=== PATIENT | male | born 1980 | race Caucasian/White ===

== ENCOUNTER 2024-04-04 00:07 | Emergency (ER) | payer OTHER, SELFPAY ==
[2024-04-04 00:09] VITALS: BP 158/84
--- NOTE | 2024-04-04 03:04 | ED.GENMED ---
History of Present Illness
General
Chief Complaint: Skin Problem
Source: patient
Exam Limitations: none
Time Seen by Provider: 04/04/24 01:52
History of Present Illness
History of Present Illness:
Patient states that he cut his penis while trying to shave with clippers. States he saw his primary care doctor who gave him a prescription for antibiotics but only to use if there was appears infection. Became concerned because he started flap
looked dark and then he checked it out on [facility] and was concerned. He is mostly here just for checkup. No fevers. Does have mupirocin at home
Past History
Past History
ED Past Medical History: None
ED Past Surgical History: None
Social History
Tobacco: Non-smoker
Alcohol: Occasional
Drug: None
Personal:
Living: with family
Employment: Employed
Family History
Family History: Hypertension; Negative Early CAD
Phy Exam
Physical Exam
Physical Exam:
CONSTITUTIONAL Vital signs reviewed, Patient alert and oriented to person, place and time. Well-appearing
HEAD atraumatic, normocephalic.
EYES eyelids normal to inspection, Extraocular muscles intact, Conjunctiva normal, Sclera normal.
NECK normal range of motion, Trachea midline, no jugular venous distention.
RESP no respiratory distress
at the dorsal left of midline base of the penis there is a very small U-shaped flap. There is no surrounding redness or drainage. Flap is well adhered to the base. No bleeding
BACK No obvious deformities
UPPER EXTREMITY Gross Range of motion normal, gross motor strength normal
LOWER EXTREMITY Gross range of motion normal, Gross motor strength normal
NEURO Speech normal, No focal motor deficits include, [place] coma scale 15, Memory normal, Cranial Nerves intact to screening exam.
Course
Vital Signs
Initial and Last Documented VS:
Initial Vital Signs
Temp Pulse Resp BP Pulse Ox
97.9 F 74 20 158/84 100
04/04/24 00:09 04/04/24 00:09 04/04/24 00:09 04/04/24 00:09 04/04/24 00:09
Last Documented Vital Signs
Temp Pulse Resp BP Pulse Ox
97.9 F 74 20 158/84 100
04/04/24 00:09 04/04/24 00:09 04/04/24 00:09 04/04/24 00:09 04/04/24 00:09
MDM/Problems Addressed
MDM/Problems Addressed:
Penile abrasion
*Pulse Oximetry
Patient hypoxic: no
*Critical Care Note
Total Time (30-74mins, 75-104mins- exclusive of procedures): Not Applicable
Data Reviewed
Prescriptions/Medications Considered But Not Given:
Considered antibiotics but no signs of infection
Patient Management
Escalation/DeEscalation of care consider admission/obs:
Patient appears well. He is only low wound care
ED Attending Note
-
Portions of this chart may have been created with voice recognition software.� Occasional wrong word or��sound alike� substitutions may have occurred due to the inherent limitations of voice recognition software.
Discharge Plan
Departure
Patient Disposition: Home (Routine Discharge)
Date of Disposition: 04/04/24
Time of Disposition: 03:04
Patient with high blood pressure during this ER visit?: Yes
Discharge Problem:
Abrasion of penis
Instructions: Wound Care (DC), BLOOD PRESSURE
Prescriptions:
No Action
cyclobenzaprine 10 MG tablet
10 mg PO PRN PRN (Reason: back pain )
Activity Restrictions/Additional Instructions:
Please apply Vaseline as discussed and avoid irritating the skin. Return immediately for redness, swelling, drainage or any other concerns
Interventions
Interventions:
*Risk Screen - Suicide Last Done: 04/04/24 00:09
*General Assessment Last Done: 04/04/24 02:34
*Neglect/Abuse Screening Last Done: 04/04/24 00:09
ED- Fall Risk Assessment Last Done: 04/04/24 02:34
*ED COVID-19 Vaccine History Last Done: 04/04/24 02:34
ED-Skin Assessment Last Done: 04/04/24 02:32
Discharge Date and Time
Print Language: FRISIAN
== END 2024-04-04 03:16 | disposition home or self-care (01) ==
LOC: EMR 00:07
PROVIDERS: EMERGENCY PHYSICIAN Emergency Medicine
DX: S30.812A Abrasion of penis, initial encounter (principal); W26.8XXA Contact with other sharp object(s), not elsewhere classified, initial encounter; R03.0 Elevated blood-pressure reading, without diagnosis of hypertension
CPT/HCPCS: 99281